=== PATIENT | female | born 1990 | race Caucasian/White ===

== ENCOUNTER 2017-09-16 15:10 | Emergency (ER) | payer OTHER ==
[~2017-09-16] VITALS: Ht 172.7 cm; Wt 90.7 kg
[~2017-09-16 15:10] MED LIST: LO/OVRAL-28 301 TAB PO; LYSINE PO; PROTONIX 40MG T40 MG PO; VALACYCLOVIR500 MG PO
[2017-09-16 15:43] LABS: ABSOLUTE BASOPHIL COUNT 0 /CUMM (0.0-0.2); ABSOLUTE EOSINOPHIL COUNT 0 /CUMM (0.0-0.7); ABSOLUTE GRANULOCYTE CT 2.3 /CUMM (1.4-6.5); ABSOLUTE LYMPH COUNT 1.4 /CUMM (1.2-3.4); ABSOLUTE MONOCYTE COUNT 0.7 /CUMM (0.10-0.60); BASOPHIL % 0.7 % (0.0-2.0); EOSINOPHIL % 0.2 % (0-5); GRANULOCYTE % 51.4 % (42.2-75.2); HEMATOCRIT 37.9 % (37-47); MEAN CORPUSCULAR HGB 32.2 PG (27.0-31.0); MEAN CORPUSCULAR HGB CONC 34.6 G/DL (33.0-37.0); MEAN CORPUSCULAR VOLUME 93.2 FL (81.0-99.0); MEAN PLATELET VOLUME 8.1 FL (7.4-10.4); PLATELET COUNT 250 /CUMM (130-400); RBC DISTRIBUTION WIDTH 12.5 % (11.5-14.5); RED BLOOD CELL CT 4.06 /CUMM (4.20-5.40); WHITE BLOOD CELL COUNT 4.4 /CUMM (4.8-10.8)
--- NOTE | 2017-09-16 17:53 | ED MVC/FALL/TRAUMA COMPLAINT ---
History of Present Illness General Chief Complaint: General Adult Stated Complaint: PER MOM "SHES ACTING DRUNK" FALL Source: patient, family Exam Limitations: no limitations Vital Signs & Intake/Output Vital Signs & Intake/Output Vital Signs Date Time Temp Pulse Resp B/P B/P Pulse O2 O2 Flow FiO2 Mean Ox Delivery Rate 09/16 2125 98.5 88 18 133/79 99 Room Air 09/16 1741 97.7 98 18 118/78 99 Room Air 09/16 1527 97.0 87 20 134/81 96 Room Air Allergies Coded Allergies: NO KNOWN ALLERGIES (02/02/12) Reconcile Medications Ethinyl Estradiol/Norgestrel (Lo/Ovral-28 30 Mcg-0.3 MG) 1 TAB TAB 1 TAB PO DAILY CONTROL (Reported) Lysine (Lysine-500) (Unknown Strength) TAB (Unknown Dose) PO DAILY SUPPLEMENT (Reported) Pantoprazole Sodium (Protonix) 40 MG TAB 40 MG PO DAILY ACID REFLUX (Reported ) VALACYCLOVIR HCL (Valacyclovir) 500 MG TAB 1 TAB PO DAILY ANTIVIRAL (Reported ) Triage Note: PT TO ED WITH MOTHER AND GIRLFRIEND FOR ALTERED MENTAL STATUS. PT'S GIRLFRIEND STATES DURING LUNCH THE PT WAS THROWING CHIPS ON THE FLOOR AND WAS SHAKEY HOLDING A PLATE. PT THEN TOOK A SHOWER AND FELL IN THE SHOWER. PT UNSURE IF HEADSTRIKE. PT IS NOT A DIABETIC, DENIES ALCOHOL OR DRUG USE TO THIS RN. PT IS A/OX3. SLOW TO RESPOND. FINGERSTICK 76. TAKEN TO [facility] FOR BLOODWORK, SEEN BY NED RODRIGUEZ IN [place]. Triage Nurses Notes Reviewed? yes : No Patient currently breastfeeds: No HPI: 27 yo F presenting with syncopal episode. Per patients significant other she came home from lunch and was acting strangely, she had mild slurred speech, was repeatedly feeding the dog potato chips despite being asked to stop, seemed unsteady on her feet, "Its like she was drunk, but I know she hasn't had anything to drink all day." Patient then zelalem to take a shower, significant other heard a thud, came into bathroom to find patient on the floor of the shower, mildly confused. No apparent head trauma or injuries, no apparent seizure like activity or bowel/bladder incontinence, no tongue biting, ambulatory following event. Patient denies headache, chest pain, SOB, palpitations, AP, N/V, dizziness, back pain, neck pain, or focal neurologic Sx. (Michael Sneed MD) Past History Travel History Traveled to [place] past 21 day No Medical History Any Pertinent Medical History? see below for history Gastrointestinal: GERD, HPYLORI Other Medical Hx: PCOS Surgical History Surgical History: ENDOSCOPY Psychosocial History What is your primary language Persian Tobacco Use: Never used ETOH Use: denies use Illicit Drug Use: denies illicit drug use Family History Hx Contributory? No (Michael Sneed MD) Review of Systems Review of Systems Constitutional: Reports: no symptoms. Eyes: Reports: no symptoms. Ears, Nose, Throat, Mouth: Reports: no symptoms. Respiratory: Reports: no symptoms. Cardiovascular: Reports: see HPI. Gastrointestinal/Abdominal: Reports: no symptoms. Genitourinary: Reports: no symptoms. Musculoskeletal: Reports: no symptoms. Skin: Reports: no symptoms. Neurological/Psychological: Reports: see HPI. All Other Systems: Reviewed and Negative (Michael Sneed MD) Physical Exam Physical Exam General Appearance: well developed/nourished, no apparent distress, alert, awake Head: atraumatic Eyes: Bilateral: PERRL, EOMI. Ears, Nose, Throat, Mouth: Dry mucus membranes Neck: normal inspection, full range of motion, no midline tenderness Respiratory: normal breath sounds, no respiratory distress, lungs clear Cardiovascular: regular rate/rhythm, normal peripheral pulses Gastrointestinal: soft, non-tender Comments: HEENT: Atraumatic C-spine: No midline bony c-spine TTP with full ROM Neurologic: Cr II-XII intact as tested, no pronator drift, no motor or sensory deficits in bilateral UE/LE, normal [id number] and [id number] testing, steady gait without assitance Core Measures ACS in differential dx? No CVA/TIA Diagnosis No Sepsis Present: No Sepsis Focused Exam Completed? No (Michael Sneed MD) Progress Differential Diagnosis: aoritic dissection, abd injury, C/T/L spine injury, ext injury, ICH, pelvis injury, pnemothorax, spinal cord injury Plan of Care: Orders Procedure Date/time Status EKG 09/16 1837 Active Add-on Test (ER Only) 09/16 1629 Active HUMAN BETA HCG SCREEN 09/16 1535 Complete URINE DRUG SCREEN FOR ER ONLY 09/16 1532 Complete FingerStick- Glucose 09/16 151 Active SERUM OSMOLALITY 09/16 151 Complete ETHANOL 09/16 151 Complete COMPREHENSIVE METABOLIC PANEL 09/16 151 Complete CBC WITHOUT DIFFERENTIAL 09/16 1512 Complete ACETONE 09/16 151 Complete Laboratory Tests 09/16/17 1654: Urine Opiates Screen < 100, Methadone Screen < 40, Barbiturate Screen < 60, Ur Phencyclidine Scrn < 6.00, Amphetamines Screen < 100, U Benzodiazepines Scrn < 85, Urine Cocaine Screen < 50, Urine Cannabis Screen < 5.00 09/16/17 1535: Anion Gap 14, Estimated GFR > 60, BUN/Creatinine Ratio 17.1, Glucose 84, Serum Osmolality 360 H, Calcium 8.6, Total Bilirubin 0.4, AST 27, ALT 21, Alkaline Phosphatase 64, Total Protein 7.0, Albumin 4.2, Globulin 2.8, Albumin/Globulin Ratio 1.5, Total Beta HCG NEGATIVE, CBC w Diff NO MAN DIFF REQ, RBC 4.06 L, MCV 93.2, MCH 32.2 H, MCHC 34.6, RDW 12.5, MPV 8.1, Gran % 51.4, Lymphocytes % 32.4 , Monocytes % 15.3 H, Eosinophils % 0.2, Basophils % 0.7, Absolute Granulocytes 2.3, Absolute Lymphocytes 1.4, Absolute Monocytes 0.7 H, Absolute Eosinophils 0 , Absolute Basophils 0, Serum Alcohol 266.0, Acetone Level NEGATIVE Physician MDM: 27 yo F presenting with syncopal episode. HR 100s, otherwise VSS, trauma exam as above. DDx: Orthostatic syncope, Vasovagal Syncope, less likely arrhythmia, low concern for seizure or ICH. Ethanol sent from triage 266, after asking the patients mother and significant other to leave the room the patient admitted to 5-6 alcoholic drinks at lunch with friends, states that she has been drinking more frequently than usual recently, but not every day (none for the last 2 days), no signs of dependence or withdrawal Sx, no other recent issues suggesting abuse, declined counseling or referral to EtOH detox. ECG sinus rhythm, TWI in lead V1, no recent priors, otherwise unremarkable. CBC, BMP unremarkable. CT head ordered from triage without signs of ICH. Given 2L NS with improvement in HR. Patient monitored in ED for clinical sobriety, on re- examination clear speech, steady gait, repeat c-spine exam without midline bony TTP and full ROM. Discharged with return precautions, plan for close f/u with PMD. (Naren RUBIN,Michael) Departure Departure Disposition: HOME OR SELF CARE Condition: Stable Clinical Impression Primary Impression: Syncope Secondary Impressions: Dehydration Referrals: Roderick Torrez APRN (PCP/Family) Additional Instructions: Drink plenty of fluids. Follow up with your primary care physician in the next 2-3 days. Return to the ED for any new, worsening, or concerning symptoms. Departure Forms: Customer Survey General Discharge Information (Naren RUBIN,Michael) Resident Co-Sign Statement Statement: ED Attending supervision documentation- I saw and evaluated the patient. I have also reviewed all the pertinent lab results and diagnostic results. I agree with the findings and the plan of care as documented in the Resident's documentation. x I have reviewed the ED Record and agree with the Resident's documentation. [] Additions or exceptions (if any) to the Resident's note and plan are summarized below: [] (Chayo RUBIN,Corbin)
--- NOTE | 2017-09-16 18:12 | CT SCAN REPORT ---
EXAMINATION: CT HEAD WITHOUT CONTRAST CLINICAL INFORMATION: Altered mental status COMPARISON: None TECHNIQUE: Contiguous axial imaging was performed from the skull base to vertex without intravenous administration of contrast. DLP: 613.88 mGy-cm FINDINGS: Presence of motion artifact limits evaluation. There is no evidence of acute intracranial hemorrhage or territorial infarction. No abnormal mass effect or midline shift is seen. Silveira to white matter differentiation is well preserved. No extra-axial fluid collections are identified. The ventricles are normal in size. There is no abnormal attenuation within the brain parenchyma. The osseous structures and soft tissues are normal. The mastoid air cells and visualized portions of the paranasal sinuses are well aerated. IMPRESSION: No acute intracranial pathology, considering limitations due to presence of motion artifact.
[2017-09-16 21:26] VITALS: BP 133/79
== END 2017-09-16 21:36 ==
LOC: ERH 15:10
PROVIDERS: Physician Assistant Medical
DX: R55 Syncope and collapse (principal); E86.0 Dehydration; K21.9 Gastro-esophageal reflux disease without esophagitis
CPT/HCPCS: 80307; 93005; 93010; G0480